=== PATIENT | female | born 1935 | race Caucasian/White ===

== ENCOUNTER 2017-12-11 06:38 | Day surgery (SDC) | payer MEDICARE ==
[2017-12-11 07:28] VITALS: BMI 37.5
[2017-12-11 07:43] VITALS: O2SAT 100
--- NOTE | 2017-12-11 08:38 | CP.SDSHP ---
Same Day Surgery H & P - History Proposed Procedure: egd Pre-Op Diagnosis: epigastric pain. heartburn refractory to therapy - Previous Medical/Surgical History Cardiac: Hypertension, Other (hyperlipidemia, Gerd, gastritis) Endocrine/Metabolic: Obesity Neuro: Backaches Misc: Other (DJD, colon polyps, cataracts) - Allergies Allergies: Allergies No Known Allergies Allergy (Verified 12/11/17 07:27) - Physical Exam Vital Signs: Vital Signs 12/11/17 12/11/17 07:34 07:53 Temperature 97.1 F L Pulse Rate 76 76 Respiratory 19 Rate Blood Pressure 165/90 H O2 Sat by Pulse 100 Oximetry Mental Status: Alert & Oriented x3 Neuro: WNL Heart: WNL Lungs: WNL GI: WNL - Impression Impression: epigastric pain. heartburn refractory to Rx Pt. Evaluated Today:Candidate for Anesthesia & Procedure: Yes - Date & Time Date: 12/11/17 Time: 08:36 Short Stay Discharge - Short Stay Discharge Admitting Diagnosis/Reason for Visit: EPIGASTRIC PAIN / HEARTBURN / ACUTE GASTRITIS Disposition: HOME/ ROUTINE
[2017-12-11] MEDS ORDERED: Pantoprazole 40 mg EC Tab PO STA (08:39)
[2017-12-11] MEDS ORDERED: Lactated Ringer's 1,000 ML IV ONE (08:40)
[2017-12-11] MEDS ORDERED: Propofol 10 mg/ml Inj (20 ML) ONE (08:41)
[2017-12-11] MEDS ORDERED: Esmolol 100 mg/10ml Inj IV ONE (08:51)
[2017-12-11] MEDS ORDERED: Pantoprazole 40 mg EC Tab PO ONE (10:00)
[2017-12-11 10:53] VITALS: BP 142/79; PULSE 72; RESP 19; TEMP 97
== END 2017-12-11 10:10 | disposition home or self-care (01) ==
LOC: C.ENDO 06:38
PROVIDERS: ATTEND Internal Medicine Gastroenterology
DX: K29.50 Unspecified chronic gastritis without bleeding (principal); K21.0 Gastro-esophageal reflux disease with esophagitis; R10.13 Epigastric pain; G47.33 Obstructive sleep apnea (adult) (pediatric); J45.909 Unspecified asthma, uncomplicated; I10 Essential (primary) hypertension; E66.9 Obesity, unspecified; E78.5 Hyperlipidemia, unspecified; M19.90 Unspecified osteoarthritis, unspecified site; Z87.19 Personal history of other diseases of the digestive system
CPT/HCPCS: 43239; 88305; J2001; J2704; J3010; J7120

== ENCOUNTER 2018-05-15 08:25 | Day surgery (SDC) | payer MEDICARE ==
--- NOTE | 2018-05-15 09:00 | CP.SDSHP ---
Same Day Surgery H & P - History Proposed Procedure: colonoscopy Pre-Op Diagnosis: Large sessile adenoma piecemeal removal 2015. h/o colon polyps - Previous Medical/Surgical History Cardiac: Hypertension, Other (hyperlipidemia, ) Endocrine/Metabolic: Obesity Neuro: Backaches Misc: Other (Gerd, gastritis, Diverticular disease, colon polyps, Cataracts, hiatal hernia) Pain: 2.Mild Pain - Allergies Allergies: Allergies No Known Allergies Allergy (Verified 12/11/17 07:27) - Physical Exam Mental Status: Alert & Oriented x3 Neuro: WNL Heart: WNL Lungs: WNL GI: WNL - Impression Impression: large sessile adenoma 2014-assess adequacy of removal. h/o colon polyps Pt. Evaluated Today:Candidate for Anesthesia & Procedure: Yes - Date & Time Date: 05/15/18 Time: 09:00 Short Stay Discharge - Short Stay Discharge Admitting Diagnosis/Reason for Visit: GERD / GASTROINTESTINAL HEMORRHAGE Disposition: HOME/ ROUTINE
[2018-05-15] MEDS ORDERED: Lactated Ringer's 1,000 ML IV ONE ×2 (09:38)
[2018-05-15] MEDS ORDERED: Lactated Ringer's 500 ML IV SCH (09:45)
[2018-05-15] MEDS ORDERED: Propofol 10 mg/ml Inj (20 ML) ONE (09:49)
[2018-05-15 10:16] VITALS: TEMP 97.9
[2018-05-15 10:54] VITALS: O2SAT 100
[2018-05-15 11:20] VITALS: BP 156/67; PULSE 77; RESP 18
== END 2018-05-15 11:15 | disposition home or self-care (01) ==
LOC: C.ENDO 08:25
PROVIDERS: ATTEND Internal Medicine Gastroenterology
DX: Z12.11 Encounter for screening for malignant neoplasm of colon (principal); K64.1 Second degree hemorrhoids; Z86.010 Personal history of colon polyps; I10 Essential (primary) hypertension; E78.5 Hyperlipidemia, unspecified; J45.909 Unspecified asthma, uncomplicated; K21.9 Gastro-esophageal reflux disease without esophagitis; K44.9 Diaphragmatic hernia without obstruction or gangrene; E66.9 Obesity, unspecified
CPT/HCPCS: G0105; J2704; J7120

== ENCOUNTER 2018-07-18 18:15 | Outpatient (CLI) | payer MEDICARE, MEDICAID | END 2018-07-18 18:16 | disposition home or self-care (01) | LOC: C.SLEEP 18:16 ==